=== PATIENT | female | born 1950 | race Caucasian/White ===

== ENCOUNTER 2018-11-26 14:06 | Emergency (ER) | payer MEDICARE, OTHER | END 2018-11-26 16:18 | disposition home or self-care (01) | LOC: FTE 14:06 | DX: L02.212 Cutaneous abscess of back [any part, except buttock and flank] (principal); I10 Essential (primary) hypertension; Z79.82 Long term (current) use of aspirin; Z79.84 Long term (current) use of oral hypoglycemic drugs | CPT/HCPCS: 10060; 99283-25 ==